=== PATIENT | female | born 1950 | race Asian ===

== ENCOUNTER → 2017-10-04 | Day surgery (SDC) | payer OTHER ==
[~2017-10-04] VITALS: Ht 160 cm; Wt 50.8 kg
--- NOTE | 2017-10-04 11:15 | MAMMOGRAPHY REPORT ---
EXAMINATION: MM GUIDED NEEDLE LOCALIZATION BREAST, LEFT CLINICAL INFORMATION: Preoperative needle localization of high risk left breast biopsy in the subareolar area found to represent LCIS and ADH. COMPARISON: Mammogram dated 08/13/2017, 07/10/2017, 06/21/2017 TECHNIQUE NEEDLE LOC: Proper informed consent is obtained from the patient after discussion of the procedure, potential risks and complications, and alternatives including declining the procedure today. Patient was given an opportunity for questions. The patient appeared to understand. The patient consented to the procedure and signed the consent form. GUIDANCE: Digital mammography. APPROACH: Medial approach TARGET: Leighton-shaped biopsy clip in the subareolar left breast. ANESTHESIA: 10 mL of lidocaine 2%. LOCALIZATION MARKER: [employer] 5 cm needle. The skin was prepped and local anesthesia administered. The needle was positioned and position assessed with mammography. The wire was hooked into position. The patient tolerated the procedure well and had no immediate complication. Diagram was marked for the surgeon. The target is a biopsy clip in the subareolar slightly medial left breast, 2 cm deep to the skin with 11 cm of the wire remaining external to the skin. IMPRESSION: Status post left breast needle localization with wire hooked into position. The target is a biopsy clip in the subareolar slightly medial left breast, 2 cm deep to the skin with 11 cm of the wire remaining external to the skin.
--- NOTE | 2017-10-04 11:19 | MAMMOGRAPHY REPORT ---
EXAMINATION: MM GUIDED NEEDLE LOCALIZATION BREAST, RIGHT CLINICAL INFORMATION: Preoperative needle localization of invasive lobular carcinoma in the right breast 11:00. COMPARISON: Mammogram dated 08/13/2017 and 07/10/2017 and 06/21/2017. TECHNIQUE NEEDLE LOC: Proper informed consent is obtained from the patient after discussion of the procedure, potential risks and complications, and alternatives including declining the procedure today. Patient was given an opportunity for questions. The patient appeared to understand. The patient consented to the procedure and signed the consent form. GUIDANCE: Digital mammography. APPROACH: Lateral approach. TARGET: Ribbon-shaped biopsy clip in the 11:00 position of the right breast. ANESTHESIA: 10 mL lidocaine 2%. LOCALIZATION MARKER: Kopans 5 cm needle. The skin was prepped and local anesthesia administered. The needle was positioned and position assessed with mammography. The wire was hooked into position. The patient tolerated the procedure well and had no immediate complication. Diagram was marked for the surgeon. The target is located around the thick segment of the wire, 2.5 cm deep to the skin with 11.5 cm of the wire remaining external to the skin. IMPRESSION: Status post right breast needle localization with wire hooked into position. The target is located around the thick segment of the wire, 2.5 cm deep to the skin with 11.5 cm of the wire remaining external to the skin.
--- NOTE | 2017-10-04 13:26 | Operative Report ---
Operative/Inv Procedure Report Surgery Date: 10/04/17 Name of Procedure: Left breast biopsy with wire localization right partial mastectomy with wire localization and sentinel lymph node biopsy Pre-Operative Diagnosis: Right breast cancer, left breast complex sclerosing lesion Post-Operative Diagnosis: Same Estimated Blood Loss: less than 50ml Surgeon/Marine Pipe Welder: Genna Hudson MD Anesthesia: general endotracheal tube Specimens: Left breast biopsy, right lumpectomy, cranial margin, caudal margin, medial margin, lateral margin, sentinel lymph node Operative/Procedure Note Note: Patient is brought to the operating room on 10-20 after preoperative wire localization and lymphoscintigraphy was performed and those films reviewed. General anesthesia was administered and 2 g of Ancef was administered as well. Bilateral breasts were prepped and draped in a sterile fashion using ChloraPrep. 3 mL of methylene blue diluted with 2 mL of saline was injected in the retroareolar fashion of the right breast. The left breast was approached first local anesthesia of lidocaine mixed with Marcaine was given. A periareolar incision was made and the wire was brought into the incision. The area of concern was grasped using an Allis clamp and dissected. During the course of the dissection the clip was visualized. Specimen was marked for orientation using margin map and intraoperative x-ray confirmed the presence of the wire in the clip. Hemostasis is adequate. Deep tissue was proximal made using interrupted Vicryl sutures and the skin was closed using a running Biosyn subcuticular stitch. The right breast was then approached. Local anesthesia was again administered. A transverse incision was made in the lower axilla. Clavipectoral fascia was entered and a single hot, blue lymph node was identified and excised. There were no other hot, blue, or palpable lymph nodes in the axilla. Fascia was closed using interrupted Vicryl sutures and the skin was closed using a running Biosyn subcuticular stitch. The breast was then approached. An incision over the tumor was made to encompass an ellipse of skin given the small amount of breast tissue in that region. The wire was brought into the incision and the area was grasped using an Allis clamp and dissected down to the pectoralis fascia. Specimen was removed and marked for orientation as a margin map. Intraoperative x-ray confirmed the presence of the clip in the specimen. Additional margins were taken in the cranial, caudal, medial, lateral, positions. There was no additional posterior tissue to take. Clips were used to luis the margins a lumpectomy bed. Deep tissue was approximated using interrupted Vicryl sutures and the skin was closed using a running Biosyn stitch. Steri-Strips and sterile dressings were applied and patient transferred to the recovery room in satisfactory condition having tolerated the procedure well
--- NOTE | 2017-10-04 17:54 | MAMMOGRAPHY REPORT ---
EXAMINATION: MM NEEDLE LOCALIZATION SPECIMEN FROM THE BREAST, RIGHT CLINICAL INDICATION: Radiograph of the lumpectomy specimen of right breast invasive lobular carcinoma. COMPARISON: Preoperative needle localization films. TECHNIQUE: Single specimen radiograph was obtained. FINDINGS: The radiograph of the excised surgical specimen shows that the hookwire is delivered intact and the marker clip is identified in the specimen. IMPRESSION: Satisfactory excision of the targeted lesion. These findings were communicated to the surgeon in the OR at the time of specimen radiography.
--- NOTE | 2017-10-04 17:55 | MAMMOGRAPHY REPORT ---
EXAMINATION: MM NEEDLE LOCALIZATION SPECIMEN FROM THE BREAST, LEFT CLINICAL INDICATION: Specimen radiograph of excisional biopsy specimen obtained from the left breast at site of LCIS and ADH. COMPARISON: Preoperative needle localization films. TECHNIQUE: Single specimen radiograph was performed. FINDINGS: The radiograph of the excised surgical specimen shows that the hookwire is delivered intact. The marker clip has fallen out and is seen outside of the specimen. IMPRESSION: Satisfactory excision of the targeted lesion. These findings were communicated to the surgeon in the OR at the time of specimen radiography.
== END ==
LOC: STS 02:59
DX: C50.411 Malignant neoplasm of upper-outer quadrant of right female breast (principal); D05.02 Lobular carcinoma in situ of left breast; Z85.038 Personal history of other malignant neoplasm of large intestine; E11.9 Type 2 diabetes mellitus without complications; Z79.84 Long term (current) use of oral hypoglycemic drugs
CPT/HCPCS: C9399; J0131; J0690; J2001; J2250; J2405; Q9968